=== PATIENT | male | born 1960 | race Caucasian/White ===

== ENCOUNTER 2017-03-13 00:07 | Emergency (ER) | payer MEDICARE, OTHER ==
--- NOTE | 2017-03-13 01:26 | ER Document Report ---
ED General - General Chief Complaint: Toothache Stated Complaint: ABSCESS Time Seen by Provider: 03/13/17 01:25 Notes: Patient is a 57-year-old male who presents with concerns of developing a dental infection. Patient states that he has had increasing swelling to an area of his gumline below tooth #8 for the past 3-4 days that got progressively worse to the point where he felt he needed to come to the emergency department to be evaluated for need of antibiotics. He is following with a dentist for chronic management of poor dentition. He notes that he has a partial that he believes is rubbed on this area repeatedly and that may have become infected. He has a dull, aching, mild pain to the area. Eating or drinking worsens the pain. Nothing improves the pain. Denies any fever or constitutional symptoms. States what concerned him is that he had noticed a small area of lymph node swelling underneath the left side of his jaw. - Related Data Allergies/Adverse Reactions: No Known Allergies Allergy (Unverified 03/13/17 00:21) Past Medical History - General Information source: Patient - Social History Smoking Status: Current Every Day Smoker Frequency of alcohol use: None Drug Abuse: None Lives with: Spouse/Significant other Family History: Reviewed & Not Pertinent Renal/ Medical History: Denies: Hx Peritoneal Dialysis Review of Systems - Review of Systems Notes: Constitutional: Negative for fever. HENT: Negative for sore throat. Positive for dental pain Eyes: Negative for visual changes. Cardiovascular: Negative for chest pain. Respiratory: Negative for shortness of breath. Gastrointestinal: Negative for abdominal pain, vomiting or diarrhea. Genitourinary: Negative for dysuria. Musculoskeletal: Negative for back pain. Skin: Negative for rash. Neurological: Negative for headaches, weakness or numbness. 10 point ROS negative except as marked above and in HPI. Physical Exam - Vital signs Interpretation: Normal Notes: PHYSICAL EXAMINATION: GENERAL: Well-appearing, well-nourished and in no acute distress. HEAD: Atraumatic, normocephalic. EYES: sclera anicteric, conjunctiva are normal. ENT: Moist mucous membranes. Poor dentition throughout. There appears to be a small area of swelling on the lower central gumline near tooth #8. Airway is widely patent. NECK: Normal range of motion. Left submandibular lymphadenopathy LUNGS: Normal work of breathing HEART: 2+ radial pulses bilaterally EXTREMITIES: no pitting or edema. No cyanosis. NEUROLOGICAL: No focal neurological deficits. Moves all extremities spontaneously and on command. PSYCH: Normal mood, normal affect. SKIN: Warm, Dry, normal turgor, no rashes or lesions noted. Course - Re-evaluation Re-evalutation: 03/13/17 01:26 Presentation is most consistent with likely an infected tooth. Airway is patent. Vitals within normal limits. Patient is able swallow without any difficulty. There is no significant facial swelling. Patient will be started on antibiotics.. I've instructed to follow-up with dentistry as earliest ability for definitive management. Return precautions and follow-up recommendations have been discussed at length. Discharge - Discharge Clinical Impression: Pain, dental Condition: Good Disposition: HOME, SELF-CARE Additional Instructions: You have been seen for dental pain. It is very important that you follow-up with a dentist for definitive care. Please return if you develop fever greater than 101, swelling in your face, vomiting, difficulty breathing or swallowing, or any other symptoms that are concerning to you. For pain you should take ibuprofen 600 mg every 6 hours as needed. Prescriptions: Amox Tr/Potassium Clavulanate [Augmentin 875-125 Tablet] 1 tab PO BID 10 Days tablet
[2017-03-13] MEDS ORDERED: AMOXICILLIN TR/POT CLAVULANATE 500-125 MG TAB PO ONE (01:39)
== END 2017-03-13 01:49 | disposition home or self-care (01) ==
LOC: ER 00:07
DX: K08.89 Other specified disorders of teeth and supporting structures (principal); K04.7 Periapical abscess without sinus; F17.200 Nicotine dependence, unspecified, uncomplicated
CPT/HCPCS: 99282

== ENCOUNTER 2017-10-12 05:29 | Emergency (ER) | payer OTHER ==
[2017-10-12] MEDS ORDERED: IPRATROPIUM/ALBUTEROL 0.5-2.5 MG/3 ML AMPUL NEB ONE (06:31)
[2017-10-12] MEDS ORDERED: ALBUTEROL SULFATE 0.083% NEB 2.5 MG/3 ML AMPUL NEB ONE (06:31)
[2017-10-12] MEDS ORDERED: GUAIFENESIN 600 MG TABLET.SA PO ONE (06:32)
[2017-10-12] MEDS ORDERED: PREDNISONE 20 MG TABLET PO ONE (06:32)
--- NOTE | 2017-10-12 07:05 | ER Document Report ---
ED General - General Chief Complaint: Cough Stated Complaint: DIFFICULTY BREATHING Time Seen by Provider: 10/12/17 06:10 Mode of Arrival: Ambulatory Information source: Patient Notes: 57-year-old male with a history of hypertension, chronic back pain, arthritis presents with complaint of cough that started 1 week prior to arrival. Patient describes the cough as persistent, productive with green sputum and worse when sleeping. Patient has associated shortness of breath only with coughing. He has tried NyQuil, Mucinex. Patient denies sick contacts, recent hospital admission. He does have a [id number] smoking history. And no known diagnosis of COPD. TRAVEL OUTSIDE OF THE [place] IN LAST 30 DAYS: No - HPI Onset: Last week Onset/Duration: Persistent, Worse Quality of pain: No pain Severity: None - Related Data Allergies/Adverse Reactions: No Known Allergies Allergy (Unverified 03/13/17 00:21) Past Medical History - General Information source: Patient - Social History Smoking Status: Current Every Day Smoker Chew tobacco use (# tins/day): No Frequency of alcohol use: None Drug Abuse: None Lives with: Family Family History: Reviewed & Not Pertinent Patient has suicidal ideation: No Patient has homicidal ideation: No - Medical History Medical History: Other - Chronic back pain - Past Medical History Cardiac Medical History: Reports: Hx Hypertension Renal/ Medical History: Denies: Hx Peritoneal Dialysis Review of Systems - Review of Systems Notes: Patient denies fever, chills, headache, ear pain, sore throat, chest pain, abdominal pain, back pain, dysuria, hematuria, rash, SI/HI. Physical Exam - Vital signs Vitals: Temp Pulse Resp BP Pulse Ox 97.6 F 65 18 142/73 H 97 10/12/17 05:29 10/12/17 05:29 10/12/17 05:29 10/12/17 05:29 10/12/17 05:29 - Notes Notes: PHYSICAL EXAMINATION: GENERAL: Well-appearing, well-nourished and in no acute distress. HEAD: Atraumatic, normocephalic. EYES: Pupils equal round and reactive to light, extraocular movements intact, sclera anicteric, conjunctiva are normal. ENT: Nares patent, oropharynx clear without exudates. Moist mucous membranes. NECK: Normal range of motion, supple without lymphadenopathy LUNGS: No respiratory distress, wheezing in the right and left lower lung vasquez. HEART: Regular rate and rhythm without murmurs ABDOMEN: Soft, nontender, nondistended abdomen. No guarding, no rebound. No masses appreciated. Musculoskeletal: Normal range of motion, no pitting or edema. No cyanosis. NEUROLOGICAL: Cranial nerves grossly intact. Normal speech, normal gait. Normal sensory, motor exams PSYCH: Normal mood, normal affect. SKIN: Warm, Dry, normal turgor, no rashes or lesions noted. Course - Re-evaluation Re-evalutation: Chest X-Ray 10/12/17 06:31 IMPRESSION: No acute cardiopulmonary findings. 10/12/17 07:06 57-year-old male with a history of hypertension, chronic back pain, arthritis presents with complaint of cough that started 1 week prior to arrival. Patient describes the cough as persistent, productive with green sputum and worse when sleeping. Patient has associated shortness of breath only with coughing. He has tried NyQuil, Mucinex. Patient was seen by myself upon arrival. Vital signs were reviewed and within normal limits. Patient is afebrile, normotensive and not hypoxic. Patient does not peer toxic or dehydrated. They are in no acute distress. Previous medical records and nursing notes reviewed. Patient received breathing treatments, prednisone. Chest x-ray pending. 10/12/17 12:45 Chest x-ray obtained and showed no acute process. Patient reports improvement of symptoms after breathing treatments. Patient will be discharged home in stable condition with a prescription for azithromycin, prednisone and albuterol. Smoking cessation was advised. - Vital Signs Vital signs: Temp Pulse Resp BP Pulse Ox 98.1 F 94 21 H 109/70 92 10/12/17 08:10 10/12/17 08:10 10/12/17 08:10 10/12/17 08:10 10/12/17 08:10 - Diagnostic Test Radiology reviewed: Image reviewed, Reports reviewed Discharge - Discharge Clinical Impression: Bronchitis Condition: Good Disposition: HOME, SELF-CARE Instructions: Bronchitis ([facility]), Inhaled Bronchodilators ([facility]) Additional Instructions: Follow up with your physician tomorrow for further care or return to the ED IMMEDIATELY if symptoms worsen or new concerns occur. If you cannot afford to follow up with your primary care physician a list of low cost clinics have been provided at the end of your discharge papers as well. Prescriptions: Albuterol Sulfate [Proair HFA Inhalation Aerosol 8.5 gm MDI] 2 puff IH Q4H PRN # 1 mdi PRN Reason: Azithromycin [Zithromax 250 mg Tablet] 250 mg PO ASDIR PRN #6 tablet PRN Reason: Prednisone 60 mg PO DAILY 5 Days #15 tablet Forms: Smoking Cessation Education Referrals: RAYNA BAEZ MD [ACTIVE STAFF] - Follow up as needed
--- NOTE | 2017-10-12 07:41 | RADIOLOGY REPORT (SQ) ---
EXAM DESCRIPTION: CHEST 2 VIEWS CLINICAL HISTORY: 57 years Male, cough sob COMPARISON: None. NUMBER OF VIEWS/TECHNIQUE: 2, PA and Lateral LIMITATIONS: None. FINDINGS: Normal lung volume. Clear parenchyma. Normal cardiac silhouette. Intact bony thorax. IMPRESSION: No acute cardiopulmonary findings.
[2017-10-12] MEDS ORDERED: ALBUTEROL SULFATE HFA (90 MCG/PUFF) 8 GM MDI (1 MDI/ER DISP) IH PRN (08:00)
[2017-10-12 08:14] VITALS: BP 109/70
== END 2017-10-12 08:15 | disposition home or self-care (01) ==
LOC: ER 05:29
DX: J40 Bronchitis, not specified as acute or chronic (principal); R06.00 Dyspnea, unspecified; I10 Essential (primary) hypertension; F17.200 Nicotine dependence, unspecified, uncomplicated
CPT/HCPCS: 94640; 99283; 71046; J7512; J3490; J7620